=== PATIENT | male | born 1990 | race Caucasian/White ===

== ENCOUNTER 2020-11-06 20:29 | Emergency (ER) | payer OTHER ==
--- NOTE | 2020-11-06 21:34 | EDM.PDOC ---
ED HPI GENERAL MEDICAL PROBLEM - General Chief Complaint: Back Pain or Injury Stated Complaint: LOW BACK PAIN Time Seen by Provider: 11/06/20 21:14 Source of Information: Reports: Patient History Limitations: Reports: No Limitations - History of Present Illness INITIAL COMMENTS - FREE TEXT/NARRATIVE: David is a 30-year-old male presenting to the ED for evaluation of low back pain and weakness in the right leg causing him to fall to the floor. His did videotape this for posteriorly purposes. Patient does not have a history of back problems. He has had no loss of bowel or bladder control. He is continuing to have numbness down the right leg. He has significant discomfort sitting, moving, or standing. Was simply bending over to change the diaper when this all started. Lower Back Pain Score (Numeric/FACES): 7 - Related Data Allergies Allergy/AdvReac Type Severity Reaction Status Date / Time No Known Allergies Allergy Verified 11/06/20 20:44 Home Meds: Home Meds Citalopram [Citalopram HBr] 20 mg PO BEDTIME 11/06/20 [History] methocarbamoL [Methocarbamol] 750 mg PO QID PRN #28 tablet 11/06/20 [Rx] Past Medical History HEENT History: Reports: Allergic Rhinitis, Impaired Vision Cardiovascular History: Reports: Heart Murmur Psychiatric History: Reports: Anxiety - Infectious Disease History Infectious Disease History: Reports: Chicken Pox, Herpes Social & Family History - Tobacco Use Tobacco Use Status *Q: Never Tobacco User - Recreational Drug Use Recreational Drug Use: No ED ROS GENERAL - Review of Systems Review Of Systems: See Below Constitutional: Reports: No Symptoms HEENT: Reports: No Symptoms Respiratory: Reports: No Symptoms Cardiovascular: Reports: No Symptoms Endocrine: Reports: No Symptoms GI/Abdominal: Reports: No Symptoms : Reports: No Symptoms Musculoskeletal: Reports: Back Pain (Low thoracic and lumbar back pain) Skin: Reports: No Symptoms Neurological: Reports: Numbness (Right leg), Tingling (Right leg), Weakness (Right leg gave out with the onset of symptoms causing him to fall.) Psychiatric: Reports: No Symptoms Hematologic/Lymphatic: Reports: No Symptoms Immunologic: Reports: No Symptoms ED EXAM,LOWER BACK PAIN/INJURY - Physical Exam Exam: See Below Exam Limited By: No Limitations General Appearance: Alert, Moderate Distress Eye Exam: Bilateral Eye: EOMI, PERRL Head: Atraumatic, Normocephalic Neck: Normal Inspection, Supple Respiratory/Chest: No Respiratory Distress, Lungs Clear, Normal Breath Sounds Cardiovascular: Normal Peripheral Pulses, Regular Rate, Rhythm, No Murmur Back Exam: Muscle Spasm (Right-sided paraspinal muscle spasm), Paraspinal Tenderness (Tenderness right markedly greater than left in the lumbar spine), Vertebral Tenderness (Vertebral tenderness at L4-L5 and L5-S1 with percussion) Extremities: Normal Inspection, Normal Range of Motion, Normal Capillary Refill Neurological: Alert, Normal Mood/Affect, Normal Dorsiflexion, CN II-XII Intact, Normal Plantar Flexion, No Motor/Sensory Deficits, Oriented x 3 Skin Exam: Warm, Dry, Intact, Normal Color Course - Vital Signs Last Recorded V/S: Last Vital Signs Temp 36.7 C 11/06/20 20:47 Pulse 94 11/06/20 20:47 Resp 20 11/06/20 20:47 BP 129/76 11/06/20 20:47 Pulse Ox 98 11/06/20 20:47 - Orders/Labs/Meds Meds: Medications Discontinued Medications Generic Name Dose Route Start Last Admin Trade Name Froylanq PRN Reason Stop Dose Admin Hydromorphone HCl 1 mg 11/06/20 21:38 11/06/20 21:54 Hydromorphone 1 Mg/Ml Syringe IM 11/06/20 21:39 1 mg ONETIME ONE Administration Hydromorphone HCl Confirm 11/06/20 21:49 Hydromorphone 1 Mg/Ml Syringe Administered 11/06/20 21:50 Dose 1 mg .ROUTE .STK-MED ONE Ketorolac Tromethamine 30 mg 11/06/20 21:37 11/06/20 21:53 Ketorolac 30 Mg/Ml Sdv IM 11/06/20 21:38 30 mg ONETIME ONE Administration Ketorolac Tromethamine Confirm 11/06/20 21:48 Ketorolac 30 Mg/Ml Sdv Administered 11/06/20 21:49 Dose 30 mg .ROUTE .STK-MED ONE Methocarbamol 1,000 mg 11/06/20 21:37 11/06/20 21:53 Methocarbamol 500 Mg Tab PO 11/06/20 21:38 1,000 mg ONETIME ONE Administration Methocarbamol Confirm 11/06/20 21:49 Methocarbamol 500 Mg Tab Administered 11/06/20 21:50 Dose 1,000 mg .ROUTE .[facility] ONE - Radiology Interpretation Free Text/Narrative:: I reviewed the CT of the lumbar spine without contrast and the report. There is mild diffuse bulging of the disc at L5-S1 without apparent nerve root displacement or compression. There is no fracture, subluxation or other acute findings identified. - Re-Assessments/Exams Free Text/Narrative Re-Assessment/Exam: 11/06/20 23:31 the patient has acute right-sided radicular pain arising from the lumbar region due to a lumbar strain with significant paraspinal muscle spasm. In addition, he has mild disc bulging at L5-S1 without effacement of the nerve roots. We will treat him with a 3 pronged treatment including methocarbamol 750 mg by mouth 4 times a day as needed for muscle spasm, Toradol 10 mg 4 times daily over the next 5 days and hydrocodone for breakthrough pain. If not improving over the next several days, he should follow-up with his primary care provider to arrange for evaluation and treatment by physical therapy. Patient and his understand this. I have put him on work restrictions with no prolonged standing, bending, or stooping. He should lift no more than 20 pounds. These are in effect until 11/14/2020. Indications to return to the ED were discussed and he was discharged in satisfactory condition. Departure - Departure Time of Disposition: 23:26 Disposition: Home, Self-Care 01 Clinical Impression: Lumbar radiculopathy, acute Acute myofascial strain of lumbar region Qualifiers: Encounter type: initial encounter Qualified Code(s): S39.012A - Strain of muscle, fascia and tendon of lower back, initial encounter Degenerative joint disease (DJD) of lumbar spine Qualifiers: Spinal osteoarthritis complication: with radiculopathy Qualified Code(s): M47.26 - Other spondylosis with radiculopathy, lumbar region - Discharge Information Instructions: Pinched Nerve, Back Injury Prevention, [id number]-[id number], Lumbar Strain Referrals: PCP,None [Primary Care Provider] - Forms: ED Department Discharge Care Plan Goals: Your CAT scan showed that you have a bulging disc at L5-S1. This does not appear to be compressing any specific nerve or spinal cord. You do have significant right-sided paraspinal muscle spasm causing the majority of the pain due to pulling down on the vertebrae and pinching the nerve. We will treat this with a combination of medications including methocarbamol which is a muscle rela xer that she may take up to 4 times a day, Toradol which is a potent anti- inflammatory that she will take 4 times a day, and sparingly using hydrocodone for breakthrough pain. Make sure you take the Toradol with some food as to not irritate the stomach. I would like you to ice the back 15 to 20 minutes every couple hours you are awake over the next 2 days. In addition, I have provided you with a work note stating no prolonged standing, sitting, or stooping. No lifting more than 20 pounds. These restrictions are in place until 11/14/2020. If not improving over the next 3 to 4 days, follow-up with your primary care provider as physical therapy may offer some benefit. Sepsis Event Note (ED) - Evaluation Sepsis Screening Result: No Definite Risk - Focused Exam Vital Signs: Vital Signs Temp Pulse Resp BP Pulse Ox 11/06/20 20:47 36.7 C 94 20 129/76 98 11/06/20 20:46 36.7 C 94 20 129/76 98 - Problem List & Annotations (1) Acute myofascial strain of lumbar region SNOMED Code(s): 985808541, 20581789, 475960181 Code(s): S39.012A - STRAIN OF MUSCLE, FASCIA AND TENDON OF LOWER BACK, INIT Status: Acute Current Visit: Yes Qualifiers: Encounter type: initial encounter Qualified Code(s): S39.012A - Strain of muscle, fascia and tendon of lower back, initial encounter (2) Degenerative joint disease (DJD) of lumbar spine Status: Acute Current Visit: Yes Qualifiers: Spinal osteoarthritis complication: with radiculopathy Qualified Code(s): M47.26 - Other spondylosis with radiculopathy, lumbar region (3) Lumbar radiculopathy, acute SNOMED Code(s): 577395756, 476308177 Code(s): M54.16 - RADICULOPATHY, LUMBAR REGION Status: Acute Current Visit: Yes
[2020-11-06] MEDS ORDERED: Methocarbamol 500 MG Tab PO ONE (21:37)
[2020-11-06] MEDS ORDERED: Ketorolac 30 MG/ML SDV IM ONE (21:37)
[2020-11-06] MEDS ORDERED: HYDROmorphone 1 MG/ML Syringe IM ONE (21:38)
[2020-11-06] MEDS ORDERED: Ketorolac 30 MG/ML SDV ONE (21:48)
[2020-11-06] MEDS ORDERED: Methocarbamol 500 MG Tab ONE (21:49)
[2020-11-06] MEDS ORDERED: HYDROmorphone 1 MG/ML Syringe ONE (21:49)
--- NOTE | 2020-11-06 23:01 | CRLCT ---
For Patients: As a result of the Century Cures Act, medical imaging exams and procedure reports are released immediately into your electronic medical record. You may view this report before your referring provider. If you have questions, please contact your health care provider. INDICATION: acute onset of low back pain with right leg numbness CT LUMBAR SPINE WITHOUT CONTRAST TECHNIQUE: Multidetector axial CT imaging was performed through the lumbar spine, without contrast. Sagittal and coronal reconstructions were generated. FINDINGS: No acute fractures are identified. Disc spaces appear preserved. Osseous alignment is within normal limits and no subluxation is seen. Paravertebral soft tissues are unremarkable. There is mild diffuse bulging of the L5-S1 disc without apparent nerve root displacement or compression. IMPRESSION: 1. No fracture, subluxation, or other acute finding identified. 2. Mild disc bulging at L5-S1. JESUS PIERRE MD [facility] Please note that all CT scans at this facility use dose modulation, iterative reconstruction, and/or weight-based dosing when appropriate to reduce radiation dose to as low as reasonably achievable. Dictated by: Carlos Pierre MD @ 11/06/2020 23:00:00 (Electronically Signed)
== END 2020-11-06 23:55 | disposition home or self-care (01) ==
LOC: JP.ED 20:29
DX: S39.012A Strain of muscle, fascia and tendon of lower back, initial encounter (principal); M47.26 Other spondylosis with radiculopathy, lumbar region; W18.39XA Other fall on same level, initial encounter
CPT/HCPCS: 72131; 96372; 99283; A9270; J1170; J1885

== ENCOUNTER 2022-12-27 11:57 | Emergency (ER) | payer OTHER ==
[2022-12-27] MEDS ORDERED: Methocarbamol 500 MG Tab PO ONE (12:24)
[2022-12-27] MEDS ORDERED: Ketorolac 30 MG/ML SDV IM ONE (12:24)
== END 2022-12-27 15:41 | disposition home or self-care (01) ==
LOC: JP.ED 11:57
DX: S39.012A Strain of muscle, fascia and tendon of lower back, initial encounter (principal); M62.830 Muscle spasm of back; X50.9XXA Other and unspecified overexertion or strenuous movements or postures, initial encounter
CPT/HCPCS: 72131; 76377; 96372; 99284; A9270; J1885